=== PATIENT | female | born 1995 | race Caucasian/White ===

== ENCOUNTER 2018-08-17 16:14 | Emergency (ER) | payer OTHER ==
[2018-08-17] MEDS ORDERED: Ketorolac Tromethamine 60 MG/2 ML VIAL ONE (17:09)
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
== END 2018-08-17 18:05 | disposition home or self-care (01) ==
LOC: ERS 16:14
DX: T14.8XXA Other injury of unspecified body region, initial encounter (principal); S00.83XA Contusion of other part of head, initial encounter; S50.312A Abrasion of left elbow, initial encounter; S50.311A Abrasion of right elbow, initial encounter; J45.909 Unspecified asthma, uncomplicated; V89.2XXA Person injured in unspecified motor-vehicle accident, traffic, initial encounter
CPT/HCPCS: J1885